=== PATIENT | male | born 1990 | race African-American/Black ===

== ENCOUNTER 2025-01-24 13:23 | Emergency (ER) | payer SELFPAY ==
[~2025-01-24] VITALS: Ht 195.6 cm; Wt 115.0 kg
[2025-01-24 13:40] VITALS: BP 149/83; PULSE 105; RESP 17; TEMP 36.8; O2SAT 97
== END 2025-01-24 13:53 | disposition left against medical advice (07) ==
LOC: ER 13:23
DX: F15.10 Other stimulant abuse, uncomplicated (principal); F22 Delusional disorders
CPT/HCPCS: 99283